=== PATIENT | male | born 1950 | race Caucasian/White ===

== ENCOUNTER 2016-10-17 04:22 | Emergency (ER) | payer MEDICARE, OTHER ==
[2016-10-17] MEDS ORDERED: cloNIDine HCL 0.2 MG TAB PO STA (04:45)
[2016-10-17] MEDS ORDERED: cloNIDine HCL 0.1 MG TAB PO STA (04:47)
[2016-10-17] MEDS ORDERED: OXYMETAZOLINE 0.05% NASL SPRAY 15 ML NASAL STA (04:47)
[2016-10-17 05:14] VITALS: RESP 16
--- NOTE | 2016-10-17 05:30 | ED ---
General Adult HPI - General Chief complaint: ENT Stated complaint: Hypertension/Epistaxsis Time Seen by Provider: 10/17/16 04:30 Source: patient, RN notes reviewed, old records reviewed Mode of arrival: ambulatory Limitations: no limitations - History of Present Illness Initial comments: This is a 65-year-old male here for evaluation of hypertension and epistaxis. Patient states he has not his blood pressure medication for a few days and his nosebleed started 2 hours prior to arrival. Patient has history of high blood pressure, does not always take his medication as prescribed. Patient's that he has not been taking it lately. Patient denies any trauma, denies any other complaints. Denies drug abuse, denies blood thinners - Related Data Allergies Allergy/AdvReac Type Severity Reaction Status Date / Time No Known Allergies Allergy Verified 10/17/16 04:32 Review of Systems ROS Statement: Those systems with pertinent positive or pertinent negative responses have been documented in the HPI. ROS Other: All systems not noted in ROS Statement are negative. Past Medical History Past Medical History: Hypertension Additional Past Medical History / Comment(s): prostate ca History of Any Multi-Drug Resistant Organisms: None Reported Additional Past Surgical History / Comment(s): prostatectomy Smoking Status: Current every day smoker Past Alcohol Use History: Occasional Past Drug Use History: Marijuana General Exam Limitations: no limitations General appearance: alert, in no apparent distress Head exam: Present: atraumatic, normocephalic, normal inspection Eye exam: Present: normal appearance, PERRL, EOMI. Absent: scleral icterus, conjunctival injection, periorbital swelling ENT exam: Present: normal exam, mucous membranes moist, other (Left naris epistaxis) Neck exam: Present: normal inspection. Absent: tenderness, meningismus, lymphadenopathy Respiratory exam: Present: normal lung sounds bilaterally. Absent: respiratory distress, wheezes, rales, rhonchi, stridor Cardiovascular Exam: Present: regular rate, normal rhythm, normal heart sounds. Absent: systolic murmur, diastolic murmur, rubs, gallop, clicks GI/Abdominal exam: Present: soft, normal bowel sounds. Absent: distended, tenderness, guarding, rebound, rigid Extremities exam: Present: normal inspection, full ROM, normal capillary refill. Absent: tenderness, pedal edema, joint swelling, calf tenderness Back exam: Present: normal inspection Neurological exam: Present: alert, oriented X3, CN II-XII intact Psychiatric exam: Present: normal affect, normal mood Skin exam: Present: warm, dry, intact, normal color. Absent: rash Course Vital Signs 10/17/16 10/17/16 04:29 05:11 Temperature 97.7 F Pulse Rate 71 58 L Respiratory 18 16 Rate Blood Pressure 225/97 184/94 O2 Sat by Pulse 99 97 Oximetry - Reevaluation(s) Reevaluation #1: 10/17/16 05:29 Left naris epistaxis is resolved, mild Afrin applied, just over time with pressure and blood pressure control Reevaluation #2: 10/17/16 05:29 Patient blood pressure remains improved, Medical Decision Making - Medical Decision Making 65 year for evaluation of epistaxis left neck, positive hypertension, blood pressure is now controlled, patient's bleeding is stopped and he can be discharged home Disposition Clinical Impression: Hypertension, uncontrolled, Left-sided epistaxis Disposition: HOME SELF-CARE Condition: Good Instructions: Nosebleed (ED), Hypertension (ED) Referrals: Nonstaff,Physician [Primary Care Provider] - 1-2 days
[2016-10-17 06:03] VITALS: BP 125/76; PULSE 60; TEMP 97.6
== END 2016-10-17 06:03 | disposition home or self-care (01) ==
LOC: EC 04:22
DX: I10 Essential (primary) hypertension (principal); R04.0 Epistaxis
CPT/HCPCS: 99283

== ENCOUNTER 2016-10-18 01:47 | Emergency (ER) | payer MEDICARE, OTHER ==
[2016-10-18 01:55] VITALS: PULSE 71; RESP 18; TEMP 98.4
[2016-10-18] MEDS ORDERED: cloNIDine HCL 0.1 MG TAB PO STA (01:59)
[2016-10-18] MEDS ORDERED: OXYMETAZOLINE 0.05% NASL SPRAY 15 ML NASAL STA (01:59)
--- NOTE | 2016-10-18 02:02 | ED ---
ENT HPI - General Chief complaint: ENT Stated complaint: bloody nose, BP Time Seen by Provider: 10/18/16 01:55 Source: patient, RN notes reviewed Mode of arrival: ambulatory Limitations: no limitations - History of Present Illness Initial comments: 65-year-old male presents to the emergency Department chief complaint of epistaxis. Patient was seen here last night for epistaxis due to elevated blood pressure he was given blood pressure medication as well as a prescription. Patient states he went home today he did not fill his blood pressure medications. Patient states that he woke up tonight with another bloody nose. Patient states there is no falls traumas. Patient states that his blood pressure still high today. Patient states he has no headache. Patient states she was concerned due to the rebleeding so he thought that he should be evaluated.Patient denies any recent fever, chills, shortness of breath , chest pain, back pain, abdominal pain, nausea vomiting, numbness or tingling, dysuria or hematuria, constipation or diarrhea, headaches or visual changes, or any other current symptoms. - Related Data Previous Rx's Medication Instructions Recorded amLODIPine [Norvasc] 5 mg PO DAILY #30 tab 10/17/16 Allergies Allergy/AdvReac Type Severity Reaction Status Date / Time No Known Allergies Allergy Verified 10/18/16 01:55 Review of Systems ROS Statement: Those systems with pertinent positive or pertinent negative responses have been documented in the HPI. ROS Other: All systems not noted in ROS Statement are negative. Past Medical History Past Medical History: Hypertension Additional Past Medical History / Comment(s): prostate ca History of Any Multi-Drug Resistant Organisms: None Reported Additional Past Surgical History / Comment(s): prostatectomy Past Psychological History: No Psychological Hx Reported Smoking Status: Current every day smoker Past Alcohol Use History: Occasional Past Drug Use History: Marijuana General Exam Limitations: no limitations General appearance: alert, in no apparent distress Head exam: Present: atraumatic, normocephalic, normal inspection Eye exam: Present: normal appearance, PERRL, EOMI. Absent: scleral icterus, conjunctival injection, periorbital swelling ENT exam: Present: mucous membranes moist, other (Patient has bleeding from the anterior nasal passages.) Neck exam: Present: normal inspection. Absent: tenderness, meningismus, lymphadenopathy Respiratory exam: Present: normal lung sounds bilaterally. Absent: respiratory distress, wheezes, rales, rhonchi, stridor Cardiovascular Exam: Present: regular rate, normal rhythm, normal heart sounds. Absent: systolic murmur, diastolic murmur, rubs, gallop, clicks Neurological exam: Present: alert, oriented X3, CN II-XII intact. Absent: motor sensory deficit Psychiatric exam: Present: normal affect, normal mood Skin exam: Present: warm, dry, intact, normal color. Absent: rash Course Vital Signs 10/18/16 01:51 Temperature 98.4 F Pulse Rate 71 Respiratory 18 Rate Blood Pressure 175/82 O2 Sat by Pulse 95 Oximetry Medical Decision Making - Medical Decision Making 65-year-old male presents emergency Department chief complaint of epistaxis. This time patient underwent Afrin spray. Patient then went clamping in the nose bleeding has stopped. This time we discussed care and follow-up he was treated for his hypertension as well. We discussed up with his doctor for this. Patient stated he understood all questions have been answered. He will be discharged home. Disposition Clinical Impression: Hypertension, uncontrolled, Left-sided epistaxis Disposition: HOME SELF-CARE Condition: Stable Instructions: Nosebleed (ED) Additional Instructions: Please use medication as discussed. Please follow up with family doctor if symptoms have not improved over the next two days. Please return to the emergency room if your symptoms increase or worsen or for any other concerns. Referrals: Nonstaff,Physician [Primary Care Provider] - 1-2 days Edita Santillan MD [STAFF PHYSICIAN] - 1-2 days Time of Disposition: 02:53
[2016-10-18 03:02] VITALS: BP 153/75
== END 2016-10-18 03:01 | disposition home or self-care (01) ==
LOC: EC 01:47
DX: I10 Essential (primary) hypertension (principal); R04.0 Epistaxis; F17.200 Nicotine dependence, unspecified, uncomplicated; Z85.46 Personal history of malignant neoplasm of prostate
CPT/HCPCS: 99283

== ENCOUNTER 2016-10-18 07:11 | Emergency (ER) | payer MEDICARE, OTHER ==
[2016-10-18 07:26] VITALS: TEMP 98.8
[2016-10-18] MEDS ORDERED: OXYMETAZOLINE 0.05% NASL SPRAY 15 ML NASAL STA (08:17)
[2016-10-18] MEDS ORDERED: cloNIDine HCL 0.2 MG TAB PO STA (08:18)
--- NOTE | 2016-10-18 08:21 | ED ---
ENT HPI - General Chief complaint: ENT Stated complaint: Nose Bleed Time Seen by Provider: 10/18/16 08:10 Source: patient, RN notes reviewed Mode of arrival: ambulatory Limitations: no limitations - History of Present Illness Initial comments: Patient is a 65-year-old male presents to emergency room for evaluation of epistaxis. Patient has been here this morning and once yesterday for the same issue. Patient does admit that he has not been taking his blood pressure medications for the past few days. Patient states he was here around 2 AM was given Afrin spray and blood pressure medication and sent home. Patient states as soon as he got home he began bleeding again. Patient states he can't get the bleeding to stop and his blood pressure is elevated again. Patient denies chest pain, shortness of breath, headache, dizziness, weakness. Patient denies taking any blood thinners. Patient denies recent nasal trauma. - Related Data Previous Rx's Medication Instructions Recorded amLODIPine [Norvasc] 5 mg PO DAILY #30 tab 10/17/16 Cephalexin [Keflex] 500 mg PO Q8HR #15 cap 10/18/16 Hydrocodone/Acetaminophen [[place] 1 each PO Q4HR PRN #15 tab 10/18/16 5-325] Allergies Allergy/AdvReac Type Severity Reaction Status Date / Time No Known Allergies Allergy Verified 10/18/16 12:26 Review of Systems ROS Statement: Those systems with pertinent positive or pertinent negative responses have been documented in the HPI. ROS Other: All systems not noted in ROS Statement are negative. Past Medical History Past Medical History: Hypertension Additional Past Medical History / Comment(s): prostate ca History of Any Multi-Drug Resistant Organisms: None Reported Additional Past Surgical History / Comment(s): prostatectomy Past Psychological History: No Psychological Hx Reported Smoking Status: Current every day smoker Past Alcohol Use History: Occasional Past Drug Use History: Marijuana General Exam - General Exam Comments Initial Comments: Sitting in exam room, slightly anxious secondary to nasal bleeding. Limitations: no limitations General appearance: alert, in no apparent distress, anxious Head exam: Present: atraumatic, normocephalic, normal inspection Eye exam: Present: normal appearance ENT exam: Present: normal oropharynx, other (bleeding from left nare, hard to visualize where bleeding originates at this time) Neck exam: Present: normal inspection Respiratory exam: Present: normal lung sounds bilaterally. Absent: respiratory distress Cardiovascular Exam: Present: regular rate, normal rhythm, normal heart sounds Extremities exam: Present: normal inspection Back exam: Present: normal inspection Neurological exam: Present: alert, oriented X3, CN II-XII intact, normal gait Psychiatric exam: Present: normal affect, normal mood Skin exam: Present: warm, dry, intact, normal color. Absent: rash Course Vital Signs 10/18/16 10/18/16 10/18/16 07:23 08:28 10:15 Temperature 98.8 F Pulse Rate 74 78 57 L Respiratory 18 18 14 Rate Blood Pressure 199/92 142/85 171/84 O2 Sat by Pulse 98 95 Oximetry Procedures - Procedures Initial comment: Merisel packing placed in left nostril. Medical Decision Making - Medical Decision Making Patient is a 65-year-old male presents to the emergency room for evaluation of hypertension and epistaxis. On arrival patient's blood pressure elevated. Catapres ordered for patient. Before patient was given blood pressure medication, pressure went back down to 142/85. Patient was given Afrin nasal spray and LET solution of the left nostril. Patient continuing to bleed. Merisel packing placed in left nostril. Patient has has reached hemostasis at this time. Patient denies blood in his throat. Patient states he is feeling better after packing placed. Patient states he will go home and take his blood pressure medications and follow-up with his primary care doctor tomorrow. Advised patient to return for worsening symptoms. Patient states he understands everything that was discussed with him. Case discussed with Dr. Barillas. Disposition Clinical Impression: Epistaxis Disposition: HOME SELF-CARE Condition: Good Instructions: Nosebleed (ED) Additional Instructions: Take at home blood pressure medications as directed. Please follow up with primary care provider 24 hours for packing removal. If any new symptom arises or symptoms worsen, return to ER as soon as possible. Referrals: Nonstaff,Physician [Primary Care Provider] - 1-2 days Time of Disposition: 10:05
[2016-10-18] MEDS ORDERED: LIDOCAINE/EPINEPHR/TETRACAINE 5 ML BOTTLE TOPICAL ONE (08:57)
[2016-10-18 10:17] VITALS: BP 171/84; PULSE 57; RESP 14
== END 2016-10-18 10:17 | disposition home or self-care (01) ==
LOC: EC 07:11
DX: R04.0 Epistaxis (principal); I10 Essential (primary) hypertension; F17.200 Nicotine dependence, unspecified, uncomplicated
CPT/HCPCS: 30901; 99283

== ENCOUNTER 2016-10-18 11:22 | Emergency (ER) | payer MEDICARE, OTHER ==
[2016-10-18] MEDS ORDERED: hydrALAZINE HCL 20 MG/ML 1 ML VIAL IVP STA (12:08)
--- NOTE | 2016-10-18 12:25 | ED ---
General Adult HPI - General Chief complaint: ENT Stated complaint: Nose bleed Time Seen by Provider: 10/18/16 12:01 Source: patient, RN notes reviewed Mode of arrival: ambulatory Limitations: no limitations - History of Present Illness Initial comments: Patient is a pleasant 65-year-old male presenting to the emergency department complaining of epistaxis. Onset was yesterday. Patient has had intermittent bleeding. Patient has been to the emergency department 3 times. On the third visit patient did have packing done however patient has had bleeding through the packing. Patient's new bleeding is more so on the right side with a packing present. Patient also feels blood down his throat. Patient's blood pressure has been running somewhat high. Patient was recently off blood pressure medications. - Related Data Previous Rx's Medication Instructions Recorded amLODIPine [Norvasc] 5 mg PO DAILY #30 tab 10/17/16 Cephalexin [Keflex] 500 mg PO Q8HR #15 cap 10/18/16 Hydrocodone/Acetaminophen [[place] 1 each PO Q4HR PRN #15 tab 10/18/16 5-325] Allergies Allergy/AdvReac Type Severity Reaction Status Date / Time No Known Allergies Allergy Verified 10/18/16 12:26 Review of Systems ROS Statement: Those systems with pertinent positive or pertinent negative responses have been documented in the HPI. ROS Other: All systems not noted in ROS Statement are negative. Constitutional: Denies: fever Eyes: Denies: eye pain ENT: Reports: as per HPI, epistaxis Respiratory: Denies: cough Cardiovascular: Denies: chest pain Endocrine: Denies: fatigue Gastrointestinal: Denies: abdominal pain Genitourinary: Denies: urgency Musculoskeletal: Denies: back pain Skin: Denies: rash Neurological: Denies: weakness Past Medical History Past Medical History: Hypertension Additional Past Medical History / Comment(s): prostate ca History of Any Multi-Drug Resistant Organisms: None Reported Additional Past Surgical History / Comment(s): prostatectomy Past Psychological History: No Psychological Hx Reported Smoking Status: Current every day smoker Past Alcohol Use History: Occasional Past Drug Use History: Marijuana General Exam Limitations: no limitations General appearance: alert, in no apparent distress Head exam: Present: atraumatic Eye exam: Present: normal appearance, PERRL ENT exam: Present: other (Blood in the posterior pharynx. Blood in both nares. Unable to his right side of bleeding. Been bleeding did return after patient blowing and suctioning bleeding was primarily from the left side.) Neck exam: Present: normal inspection Respiratory exam: Present: normal lung sounds bilaterally Cardiovascular Exam: Present: regular rate, normal rhythm GI/Abdominal exam: Present: soft. Absent: tenderness Extremities exam: Present: normal inspection Neurological exam: Present: alert Psychiatric exam: Present: normal affect, normal mood Skin exam: Absent: rash Course Vital Signs 10/18/16 10/18/16 11:29 13:11 Temperature 98.3 F Pulse Rate 73 66 Respiratory 18 20 Rate Blood Pressure 202/94 126/66 O2 Sat by Pulse 96 96 Oximetry Procedures - Procedures Initial comment: Epistaxis left naris: Both nares blood clots removed with suction and patient blowing. Patient had recurrent active bleeding and unable to visualize site. Posterior Rhino Rocket placed on the left with hemostasis. Afrin also use. Medical Decision Making - Medical Decision Making Patient reevaluated and hemostasis remains. Patient complains of some pressure in the nasal passage and has been provided pain medication. Offered to decrease pressure on the Rhino Rocket however patient refuses - Lab Data Result diagrams: 10/18/16 12:20 10/18/16 12:20 Lab Results 10/18/16 10/18/16 10/18/16 Range/Units 12:20 12:20 12:20 WBC 9.9 (3.8-10.6) k/uL RBC 4.28 L (4.30-5.90) m/uL Hgb 13.4 (13.0-17.5) gm/dL Hct 40.9 (39.0-53.0) % MCV 95.4 (80.0-100.0) fL MCH 31.3 (25.0-35.0) pg MCHC 32.8 (31.0-37.0) g/dL RDW 14.1 (11.5-15.5) % Plt Count 263 (150-450) k/uL Neutrophils % 68 % Lymphocytes % 23 % Monocytes % 6 % Eosinophils % 1 % Basophils % 1 % Neutrophils # 6.7 (1.3-7.7) k/uL Lymphocytes # 2.3 (1.0-4.8) k/uL Monocytes # 0.6 (0-1.0) k/uL Eosinophils # 0.1 (0-0.7) k/uL Basophils # 0.1 (0-0.2) k/uL PT 10.8 (9.0-12.0) sec INR 1.1 (<1.1) APTT 23.9 (22.0-30.0) sec Sodium 141 (137-145) mmol/L Potassium 4.5 (3.5-5.1) mmol/L Chloride 105 (98-107) mmol/L Carbon Dioxide 29 (22-30) mmol/L Anion Gap 7 mmol/L BUN 28 H (9-20) mg/dL Creatinine 0.79 (0.66-1.25) mg/dL Est GFR (MDRD) Af Amer >60 (>60 ml/min/1.73 sqM) Est GFR (MDRD) Non-Af >60 (>60 ml/min/1.73 sqM) Glucose 110 H (74-99) mg/dL Calcium 9.0 (8.4-10.2) mg/dL Total Bilirubin 0.8 (0.2-1.3) mg/dL AST 20 (17-59) U/L ALT 33 (21-72) U/L Alkaline Phosphatase 58 (38-126) U/L Total Protein 6.5 (6.3-8.2) g/dL Albumin 3.7 (3.5-5.0) g/dL Disposition Clinical Impression: Acute posterior epistaxis Disposition: HOME SELF-CARE Condition: Stable Instructions: Nosebleed (ED) Additional Instructions: Do not blow nose. Follow-up with primary care physician or ENT in 3-5 days for packing removal. Return for bleeding, bleeding from other areas, worsening symptoms or other concerns. Prescriptions: Cephalexin [Keflex] 500 mg PO Q8HR #15 cap Hydrocodone/Acetaminophen [[place] 5-325] 1 each PO Q4HR PRN #15 tab PRN Reason: Pain Referrals: Nonstaff,Physician [Primary Care Provider] - 1-2 days Roney Purvis MD [STAFF PHYSICIAN] - 1-2 days Edita Santillan MD [STAFF PHYSICIAN] - 1-2 days
[2016-10-18 12:34] LABS: Basophils # (A) 0.1 k/uL (0-0.2); Basophils % (A) 1 %; CH 31.7; CHCM 33.4; Eosinophils # (A) 0.1 k/uL (0-0.7); Eosinophils % (A) 1 %; HCT 40.9 % (39.0-53.0); HDW 2.67; HGB 13.4 gm/dL (13.0-17.5); Luc # (Auto) 0.21; Luc % (Auto) 2; Lymphocytes # (A) 2.3 k/uL (1.0-4.8); Lymphocytes % (A) 23 %; MCH 31.3 pg (25.0-35.0); MCHC 32.8 g/dL (31.0-37.0); MCV 95.4 fL (80.0-100.0); Mean Platelet Volume 7.6; Monocytes # (A) 0.6 k/uL (0-1.0); Monocytes % (A) 6 %; Neutrophils # (A) 6.7 k/uL (1.3-7.7); Neutrophils % (A) 68 %; RBC 4.28 m/uL (4.30-5.90); RDW 14.1 % (11.5-15.5); WBC 9.9 k/uL (3.8-10.6); WBC (Perox) 10.45
[2016-10-18 12:45] LABS: ALT 33 U/L (21-72); AST 20 U/L (17-59); Alkaline Phosphatase 58 U/L (38-126); Anion Gap 7 mmol/L; Blood Urea Nitrogen 28 mg/dL (9-20); Carbon Dioxide 29 mmol/L (22-30); Chloride 105 mmol/L (98-107); Glucose 110 mg/dL (74-99); Non-African American GFR(MDRD) >60 (>60 ml/min/1.73 sqM); Potassium 4.5 mmol/L (3.5-5.1); Sodium 141 mmol/L (137-145); Total Bilirubin 0.8 mg/dL (0.2-1.3); Total Protein 6.5 g/dL (6.3-8.2)
[2016-10-18 12:48] LABS: INR 1.1 (<1.1); Partial Thromboplastin Time 23.9 sec (22.0-30.0); Prothrombin Time 10.8 sec (9.0-12.0)
[2016-10-18] MEDS ORDERED: MORPHINE SULFATE 2 MG/ML SYRINGE IVP ONE (13:11)
[2016-10-18 14:19] VITALS: BP 111/57; PULSE 55; RESP 18; TEMP 97.9
== END 2016-10-18 14:18 | disposition home or self-care (01) ==
LOC: EC 11:22
DX: R04.0 Epistaxis (principal); I10 Essential (primary) hypertension; F17.200 Nicotine dependence, unspecified, uncomplicated; Z85.46 Personal history of malignant neoplasm of prostate; Z90.79 Acquired absence of other genital organ(s)
CPT/HCPCS: 96374 ×2; 96375 ×2; 99283 ×3; 30905 ×2; 30901; 36415; 80053; 85025; 85610; 85730; J0360; J2270